=== PATIENT | female | born 1960 | race Hispanic/Latino ===

== ENCOUNTER 2017-03-27 10:16 | Day surgery (SDC) | payer MEDICAID ==
[2017-03-22 10:49] VITALS: BMI 27.1
[2017-03-27] MEDS ORDERED: Propofol 10 mg/ml Inj (20 ML) ONE (12:55)
[2017-03-27] MEDS ORDERED: Simethicone 40 mg/0.6 ml Liquid (30 ml) ONE (12:59)
[2017-03-27 13:16] VITALS: O2SAT 100
[2017-03-27] MEDS ORDERED: ePHEDrine 50 mg/ml Inj ONE (13:26)
[2017-03-27] MEDS ORDERED: Sodium Chloride 0.9% 1,000 ML IV SCH (13:45)
[2017-03-27 14:04] VITALS: PULSE 70
[2017-03-27 14:35] VITALS: BP 131/78; RESP 18; TEMP 97.9
== END 2017-03-27 15:07 | disposition home or self-care (01) ==
LOC: ENDO 10:16
PROVIDERS: ATTEND Internal Medicine Gastroenterology
DX: Z12.11 Encounter for screening for malignant neoplasm of colon (principal); K57.30 Diverticulosis of large intestine without perforation or abscess without bleeding; K64.8 Other hemorrhoids; Q90.9 Down syndrome, unspecified; G35 Multiple sclerosis
CPT/HCPCS: 45378; J2001; J2704; J7040